=== PATIENT | male | born 2000 | race African-American/Black ===

== ENCOUNTER 2020-01-07 18:11 | Emergency (ER) | payer SELFPAY ==
[~2020-01-07] VITALS: Ht 172.7 cm; Wt 64.0 kg
[2020-01-07 18:14] VITALS: BP 139/97
== END 2020-01-07 18:45 | disposition left against medical advice (07) ==
LOC: ER 18:11
DX: R07.89 Other chest pain (principal); R51.9 Headache, unspecified; M79.10 Myalgia, unspecified site; J45.909 Unspecified asthma, uncomplicated
CPT/HCPCS: 99281